=== PATIENT | male | born 1970 | race Caucasian/White ===

== ENCOUNTER 2017-05-09 17:23 | Emergency (ER) | payer OTHER | END 2017-05-09 18:36 | disposition home or self-care (01) | LOC: ER 17:23 | DX: L60.0 Ingrowing nail (principal); I48.91 Unspecified atrial fibrillation; I10 Essential (primary) hypertension; E07.9 Disorder of thyroid, unspecified; Z79.82 Long term (current) use of aspirin; Z79.899 Other long term (current) drug therapy; Z88.6 Allergy status to analgesic agent ==